=== PATIENT | male | born 1970 | race Caucasian/White ===

== ENCOUNTER 2018-10-01 21:46 | Emergency (ER) | payer OTHER ==
[~2018-10-01] VITALS: Ht 177.8 cm; Wt 90.7 kg
[2018-10-01] MEDS ORDERED: IRBESARTAN75 MG (21:56)
[2018-10-01] MEDS ORDERED: ARMOUR THYROID60 M1 (21:57)
== END 2018-10-01 23:53 | disposition home or self-care (01) ==
LOC: ER 21:46
DX: R06.02 Shortness of breath (principal); L29.8 Other pruritus; T78.1XXA Other adverse food reactions, not elsewhere classified, initial encounter; X58.XXXA Exposure to other specified factors, initial encounter